=== PATIENT | female | born 1975 | race Caucasian/White ===

== ENCOUNTER 2019-05-30 00:02 | Emergency (ER) | payer OTHER ==
--- NOTE | 2019-05-30 00:06 | ED Physician Documentation ---
General Adult - HISTORIAN Historian: patient - HPI Stated Complaint: allergic reaction Chief Complaint: General Adult Onset: minutes Timing: still present Severity: moderate Further Comments: yes (Pt is a 44 yo female with sudden onset difficulty breathing and difficulty swallowing after showering following a horse show this evening in which her children participated. Pt cannot identify anything different from her usual routine to account for a new exposure. Pt has not had any similar sx previously. No asthma hx. Pt describes her throat as burning.) - ROS CONST: no problems EYES/ENT: sore throat CVS/RESP: shortness of breath, other (wheezing) GI/: none MS/SKIN/LYMPH: none - PAST HX Past History: other (GERD) Allergies/Adverse Reactions: Allergies Allergy/AdvReac Type Severity Reaction Status Date / Time No Known Allergies Allergy Verified 05/30/19 00:46 - SOCIAL HX Smoking History: non-smoker - FAMILY HX Family History: No - REVIEWED ASSESSMENTS Nursing Assessment Reviewed: Yes Vitals Reviewed: Yes Progress - Progress Progress: Pulmicort HFN Solu-medrol 125 mg IV Benadryl 25 mg IV improved, but c/o sore throat Rx Prednisone 50 mg. Take one daily for 5 days. Benadryl OTC 25-50 mg q 4-6 h prn Rx Keflex 500 mg. Take one every 8 hours for 10 days. 1st dose in ER. General Adult Physical Exam - PHYSICAL EXAM GENERAL APPEARANCE: moderate distress EENT: pharynx normal NECK: normal inspection, supple RESPIRATORY: wheezes CVS: reg rate & rhythm, heart sounds normal ABDOMEN: soft, no organomegaly, normal bowel sounds BACK: normal inspection, no CVA tenderness SKIN: warm/dry, normal color EXTREMITIES: non-tender, normal range of motion, no evidence of injury, no edema NEURO: oriented X3, motor nml, sensation nml Discharge Clincal Impression: allergic reaction Pharyngitis Qualifiers: Pharyngitis/tonsillitis etiology: unspecified etiology Qualified Code(s): J02.9 - Acute pharyngitis, unspecified Condition: Stable Disposition: 01 HOME, SELF-CARE Decision to Admit: NO Decision Time: 01:26
[2019-05-30] MEDS: BUDESONIDE 0.5MG/2ML AMPUL.NEB NEB STA (00:10)
[2019-05-30] MEDS: diphenhydrAMINE HCL 50 MG/ML VIAL IVP ONE (00:42)
[2019-05-30] MEDS: methylPREDNISolone SOD SUCC 125 MG/2 ML VIAL IVP ONE (00:43)
[2019-05-30] MEDS: CEPHALEXIN 250 MG CAPSULE PO ONE (01:30)
[2019-05-30 06:28] VITALS: BP 105/76
== END 2019-05-30 01:40 | disposition home or self-care (01) ==
LOC: ED 00:02
DX: T78.40XA Allergy, unspecified, initial encounter (principal); J02.9 Acute pharyngitis, unspecified; Z91.09 Other allergy status, other than to drugs and biological substances
CPT/HCPCS: 94640; 96374; 96375; 99284; J1200; J2930; J7626; S1016